=== PATIENT | male | born 1975 | race African-American/Black ===

== ENCOUNTER 2021-04-26 18:15 | Emergency (ER) | payer SELFPAY ==
--- NOTE | 2021-04-26 19:12 | ER ---
Nurse's Notes [facility] Name: Dawit Calderón Age: 45 yrs Sex: Male : 1975 Arrival Date: 04/26/2021 Time: 18:33 Bed Waiting Private MD: Diagnosis: ED Course: 04/26 18:33 Patient arrived in ED. ds1 18:58 not in ED when called to triage. ll1 Administered Medications: No medications were administered Outcome: 19:12 Patient left the ED. ll1 Signatures: Leila Young ds1 Eriberto Herndon, RN RN ll1
== END 2021-04-26 19:12 | disposition left against medical advice (07) ==
LOC: EDSEX 18:15 → ER 18:15
DX: Z02.9 Encounter for administrative examinations, unspecified (principal)

== ENCOUNTER → 2021-09-11 | Emergency (ER) | payer OTHER, SELFPAY ==
[~2021-09-11] MED LIST: ASPIRIN 81 MG CHEWABLE TABLET ONE
--- OUTSIDE RECORDS SUMMARY | 2021-09-11 16:35 | XMS REPORT | Continuity of Care Document ---
:1975 Author Organization [facility] t Address [address] [place] [address] [place] [id number] Care Team Providers Name Role Phone Unavailable Unavailable Unavailable Problems This patient has no known problems. Allergies, Adverse Reactions, Alerts This patient has no known allergies or adverse reactions. Medications This patient has no known medications. Procedures This patient has no known procedures. Results This patient has no known results.
[2021-09-11 17:16] LABS: Absolute Lymphocytes (CBC) 2.2 K/uL (0.7-4.9); Hematocrit 46.8 % (39.6-49.0); Lymphocytes % 32.7 % (15.3-44.8); RBC Red Blood Cell Count 5.44 M/uL (4.33-5.43)
--- NOTE | 2021-09-11 17:20 | RAD REPORT ---
EXAM DESCRIPTION: Corie Single View09/11/2021 5:12 pm CLINICAL HISTORY: Chest pain COMPARISON: none FINDINGS: The lungs appear clear of acute infiltrate. The heart is normal size IMPRESSION: No acute abnormalities displayed
[2021-09-11 17:30] LABS: Protime INR 1.09
[2021-09-11 17:33] LABS: Magnesium 2.1 mg/dL (1.8-2.4); Potassium 3.5 mmol/L (3.5-5.1); Troponin High Sensitivity 22.1 pg/mL (<58.9)
--- NOTE | 2021-09-11 18:54 | EDPHYS ---
Physician Documentation [facility] Name: Dawit Calderón Age: 46 yrs Sex: Male : 1975 Arrival Date: 09/11/2021 Time: 16:33 Bed 15 Private MD: ED Physician Ilya Alejo HPI: 09/11 16:55 This 46 yrs old Black Male presents to ER via Ambulatory with complaints of Chest Pain cp - no hx. Historical: - Allergies: 16:47 No Known Allergies; ld1 - Home Meds: 16:47 None [Active]; ld1 - PMHx: 16:47 None; ld1 - PSHx: 16:47 None; ld1 - Immunization history:: Adult Immunizations up to date, Client reports having NOT received the Covid vaccine. - Social history:: Smoking status: Patient denies any tobacco usage or history of. Patient/guardian denies using alcohol. ROS: 17:00 Constitutional: Negative for body aches, chills, fever, poor PO intake. cp 17:00 Eyes: Negative for injury, pain, redness, and discharge. cp 17:00 ENT: Negative for drainage from ear(s), ear pain, sore throat, difficulty swallowing, difficulty handling secretions. 17:00 Cardiovascular: Positive for chest pain, Negative for edema, palpitations. 17:00 Respiratory: Negative for cough, shortness of breath, wheezing. 17:00 Abdomen/GI: Negative for abdominal pain, nausea, vomiting, and diarrhea, constipation. 17:00 Back: Negative for pain at rest, pain with movement. 17:00 Neuro: Positive for near syncope, Negative for altered mental status, headache, loss of consciousness, syncope, weakness. 17:00 All other systems are negative. Exam: 16:51 ECG was reviewed by the Attending Physician. cp 17:05 Constitutional: The patient appears in no acute distress, alert, awake, cp non-diaphoretic, non-toxic, well developed, well nourished, overweight 17:05 Head/Face: Normocephalic, atraumatic. cp 17:05 Eyes: Periorbital structures: appear normal, Conjunctiva: normal, no exudate, no injection, Sclera: no appreciated abnormality, Lids and lashes: appear normal, bilaterally. 17:05 ENT: External ear(s): are unremarkable, Nose: is normal, Mouth: Lips: moist, Oral mucosa: moist, Posterior pharynx: Airway: no evidence of obstruction, patent. 17:05 Neck: ROM/movement: is normal, is supple, without pain, no range of motions limitations, no nuchal rigidity. 17:05 Chest/axilla: Inspection: normal, Palpation: is normal, no crepitus, no tenderness. 17:05 Cardiovascular: Rate: normal, Rhythm: regular, Heart sounds: murmur, not appreciated, Edema: is not appreciated, JVD: is not appreciated. 17:05 Respiratory: the patient does not display signs of respiratory distress, Respirations: normal, no use of accessory muscles, no retractions, labored breathing, is not present, Breath sounds: are clear throughout, no decreased breath sounds. 17:05 Abdomen/GI: Inspection: abdomen appears normal, Palpation: abdomen is soft and non-tender, in all quadrants. 17:05 Back: pain, is absent, ROM is normal. 17:05 Neuro: Orientation: to person, place \\T\\ time. Mentation: is normal, Motor: moves all fours, strength is normal, Sensation: is normal. Vital Signs: 16:46 BP 142 / 116; Pulse 92; Resp 18; Temp 98.1(TE); Pulse Ox 99% on R/A; Weight 117.93 kg; ld1 Height 6 ft. 1 in. (185.42 cm); Pain 6/10; 17:00 BP 138 / 92; ld1 16:46 Body Mass Index 34.30 (117.93 kg, 185.42 cm) ld1 MDM: 18:46 Patient medically screened. 18:55 Physician consultation: Андрей Franco was contacted at 18:55, regarding admission, to the telemetry unit. and will see patient in ED. 19:10 The patient was given aspirin in the Emergency Department. 19:10 Data reviewed: vital signs, nurses notes, lab test result(s), EKG, radiologic studies, cp plain films, and as a result, I will admit patient. Test interpretation: by ED physician or midlevel provider: ECG, plain radiologic studies. 19:10 Response to treatment: the patient's symptoms have resolved after treatment, chest pain cp resolved while in ED, and as a result, I will admit patient. 09/11 16:49 Order name: Basic Metabolic Panel; Complete Time: 18:17 [facility] 09/11 18:17 Interpretation: Normal except: CL 111; GLUC 197; CRE 1.46; GFR 59. 09/11 16:49 Order name: CBC with Diff; Complete Time: 18:17 [facility] 09/11 18:17 Interpretation: Normal except: RBC 5.44. 09/11 16:49 Order name: Troponin HS; Complete Time: 18:17 [facility] 09/11 19:08 Interpretation: Troponin HS 22.1; Reviewed. 09/11 16:51 Order name: COVID-19 SARS RT PCR (Document "Date of Onset" if Symptomatic); Complete cp Time: 19:08 09/11 19:08 Interpretation: Reviewed. 09/11 16:51 Order name: Magnesium; Complete Time: 18:17 cp 09/11 19:09 Interpretation: Reviewed. 09/11 16:51 Order name: PT-INR; Complete Time: 18:17 cp 09/11 19:09 Interpretation: Reviewed. 09/11 16:49 Order name: XRAY Chest (1 view); Complete Time: 18:17 [facility] 09/11 19:09 Interpretation: Report review. 09/11 16:49 Order name: EKG; Complete Time: 16:49 09/11 16:49 Order name: EKG - Nurse/Tech; Complete Time: 16:49 09/11 16:49 Order name: IV Saline Lock; Complete Time: 16:56 [facility] 09/11 16:51 Order name: Ptt, Activated; Complete Time: 18:17 09/11 16:51 Order name: BNP; Complete Time: 18:17 09/11 16:49 Order name: Labs collected and sent; Complete Time: 16:55 [facility] 09/11 16:49 Order name: O2 Per Protocol; Complete Time: 16:49 [facility] 09/11 16:49 Order name: O2 Sat Monitoring; Complete Time: 16:49 [facility] 09/11 16:51 Order name: Blood Pressure Recheck: bilateral upper extremity; Complete Time: 17:00 EC:51 Rate is 87 beats/min. Rhythm is regular. [place] interval is normal. QRS interval is normal. cp QT interval is normal. T waves are Inverted in leads III, aVF, aVR, V3, V4, V5, V6. Administered Medications: 16:57 Drug: Aspirin Chewable Tablet 324 mg Route: PO; ld1 17:00 Follow up: Response: No adverse reaction ld1 Disposition: 09/12 07:43 Co-signature as Attending Physician, Ilya Alejo MD I agree with the assessment and kdr plan of care. Disposition Summary: 09/11/21 18:53 Hospitalization Ordered Hospitalization Status: Observation cp Location: Telemetry/MedSurg (observation) cp Condition: Stable cp Problem: new cp Symptoms: have improved cp Bed/Room Type: Standard cp Room Assignment: cp Provider: Nnamdi Cifuentes(09/11/21 18:54) la1 Diagnosis - Angina pectoris, unspecified cp Forms: - Medication Reconciliation Form cp - SBAR form cp Signatures: Dispatcher [employer] EDMS Ilya Alejo MD MD [facility] Андрей Franco, HOSPITAL PLAN ADMINISTRATOR-C HOSPITAL PLAN ADMINISTRATOR-Cla1 Ben Ramos PA PA cp Fifi Palacio RN RN ld1 Corrections: (The following items were deleted from the chart) 09/11 18:54 18:53 Андрей Franco cp la1
--- NOTE | 2021-09-11 18:54 | ER ---
Nurse's Notes [facility] Name: Dawit Calderón Age: 46 yrs Sex: Male : 1975 Arrival Date: 09/11/2021 Time: 16:33 Bed 15 Private MD: Diagnosis: Angina pectoris, unspecified Presentation: 09/11 16:46 Chief complaint: Patient states: Chest pain on and off for the past week. Today it got ld1 bad while I was mowing, I had to stop because it was tight. Coronavirus screen: At this time, the client does not indicate any symptoms associated with coronavirus-19. Ebola Screen: No symptoms or risks identified at this time. Initial Sepsis Screen: Does the patient meet any 2 criteria? No. Patient's initial sepsis screen is negative. Does the patient have a suspected source of infection? No. Patient's initial sepsis screen is negative. Risk Assessment: Do you want to hurt yourself or someone else? Patient reports no desire to harm self or others. Onset of symptoms was September 11, 2021. 16:46 Method Of Arrival: Ambulatory ld1 16:46 Acuity: HIRAM 3 ld1 Triage Assessment: 16:47 General: Appears in no apparent distress. comfortable, Behavior is calm, cooperative, ld1 appropriate for age. Pain: Complains of pain in chest Pain does not radiate. Pain currently is 5 out of 10 on a pain scale. at worst was 9 out of 10 on a pain scale. Quality of pain is described as throbbing. Pain: Quality of pain is described as tight. EENT: No signs and/or symptoms were reported regarding the EENT system. Neuro: Level of Consciousness is awake, alert, obeys commands, Oriented to person, place, time, situation. Cardiovascular: Capillary refill < 3 seconds Patient's skin is warm and dry. Rhythm is sinus rhythm. Respiratory: Airway is patent Respiratory effort is even, unlabored, Respiratory pattern is regular, symmetrical. GI: Abdomen is round non-distended. : No signs and/or symptoms were reported regarding the genitourinary system. Derm: No signs and/or symptoms reported regarding the dermatologic system. Musculoskeletal: Reports pain in chest. Historical: - Allergies: 16:47 No Known Allergies; ld1 - Home Meds: 16:47 None [Active]; ld1 - PMHx: 16:47 None; ld1 - PSHx: 16:47 None; ld1 - Immunization history:: Adult Immunizations up to date, Client reports having NOT received the Covid vaccine. - Social history:: Smoking status: Patient denies any tobacco usage or history of. Patient/guardian denies using alcohol. Screenin:00 Abuse screen: Denies threats or abuse. Nutritional screening: No deficits noted. ld1 Tuberculosis screening: No symptoms or risk factors identified. Fall Risk None identified. 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 19:18 Reassessment: Informed pt of potential risks of leaving AMA, "You have to take care of ld1 yourself too", stated that pt can always come back, asked to come back after he gets his animals taken care of. Vital Signs: 16:46 BP 142 / 116; Pulse 92; Resp 18; Temp 98.1(TE); Pulse Ox 99% on R/A; Weight 117.93 kg; ld1 Height 6 ft. 1 in. (185.42 cm); Pain 6/10; 17:00 BP 138 / 92; ld1 16:46 Body Mass Index 34.30 (117.93 kg, 185.42 cm) ld1 ED Course: 16:33 Patient arrived in ED. am2 16:36 [facility] cp 16:36 Ilya Alejo MD is Attending Physician. cp 16:47 Triage completed. ld1 16:47 Arm band placed on right wrist. ld1 16:54 Inserted saline lock: 20 gauge in right antecubital area, using aseptic technique. ld1 Blood collected. 16:54 EKG done, by ED staff, reviewed by Ben BRANCH. ld1 16:54 BNP Sent. ld1 16:55 Ptt, Activated Sent. ld1 16:55 PT-INR Sent. ld1 16:55 Magnesium Sent. ld1 16:55 Troponin HS Sent. ld1 16:55 CBC with Diff Sent. ld1 16:55 Basic Metabolic Panel Sent. ld1 16:56 COVID-19 SARS RT PCR (Document "Date of Onset" if Symptomatic) Sent. ld1 17:14 XRAY Chest (1 view) In Process Unspecified. EDMS 18:52 Андрей Franco is Hospitalizing Provider. cp 18:54 Nnamdi Cifuentes MD is Hospitalizing Provider. la1 19:00 Patient has correct armband on for positive identification. Placed in gown. Bed in low ld1 position. Call light in reach. Side rails up X 1. 19:00 Client placed on continuous cardiac and pulse oximetry monitoring. NIBP monitoring ld1 applied. 19:17 No provider procedures requiring assistance completed. IV discontinued, intact, ld1 bleeding controlled, No redness/swelling at site. Pressure dressing applied. 19:17 Patient maintains SpO2 saturation greater than 95% on room air. ld1 Administered Medications: 16:57 Drug: Aspirin Chewable Tablet 324 mg Route: PO; ld1 17:00 Follow up: Response: No adverse reaction ld1 Outcome: 18:53 Decision to Hospitalize by Provider. cp 19:17 AMA AMA form signed ld1 19:17 Condition: stable 19:17 Discharge instructions given to patient, Instructed on Leaving AMA Demonstrated understanding of instructions. 19:52 Patient left the ED. ld1 Signatures: Dispatcher [employer] EDMS Андрей Franco, GOVERNMENT RELATIONS DIRECTOR-C GOVERNMENT RELATIONS DIRECTOR-Cla1 Ben Ramos PA PA cp Moreno, Amanda am2 Fifi Palacio RN RN ld1 Corrections: (The following items were deleted from the chart) 19:51 19:49 Abuse screen: Denies threats or abuse. ld1 ld1 19:51 19:49 Nutritional screening: No deficits noted. ld1 ld1 19:51 19:49 Tuberculosis screening: No symptoms or risk factors identified. ld1 ld1 19:51 19:49 Fall Risk None identified. ld1 ld1
[2021-09-11 19:57] VITALS: TEMP 98.1; O2SAT 99
[2021-09-11 19:58] VITALS: BP 138/92
--- NOTE | 2021-09-14 12:24 | EKG ---
Test Date: 2021-09-11 Test Time: 16:45:03 Lease Administrator: MB MEASUREMENT RESULTS: Intervals: Rate: 87 VT: 146 QRSD: 90 QT: 390 QTc: 469 [place]: P: 67 VT: 146 QRS: 27 T: -35 INTERPRETIVE STATEMENTS: Sinus rhythm with occasional premature ventricular complexes T wave abnormality, consider inferior ischemia T wave abnormality, consider anterolateral ischemia Prolonged QT Abnormal ECG No previous ECG available for comparison Electronically Signed On 09-14-21 12:17:19 CDT by Dre Long
== END ==
LOC: ER 16:32
DX: I20.9 Angina pectoris, unspecified (principal); Z20.822 Contact with and (suspected) exposure to COVID-19
CPT/HCPCS: 93005; 85025; 80048; 36415; 83735; 85610; 85730; 84484; 83880; 71045; 99285; U0003

== ENCOUNTER 2024-05-23 06:59 | Inpatient (IN) | payer BC, OTHER ==
--- OUTSIDE RECORDS SUMMARY | 2024-05-23 07:03 | XMS REPORT | Continuity of Care Document ---
Author Name Unknown Address [address] [facility] [address] [place] [address] [facility] thconnect Address [address] [facility] [address] [place] [address] Care Team Providers Care Identification Clerk Name Role Phone Manuel GEORGE, Maximilian Chris Primary Care Physician Sherrie Sparrow LVN Attending Clinician [phone] AVERY AGUILAR Attending Clinician Bishop Norton Attending Clinician [phone] Kiki Cat NP Attending Clinician [phone] Avery Aguilar MD Attending Clinician [phone] AVERY AGUILAR Admitting Clinician Avery Tyler MD Admitting Clinician [phone] Payers Payer Name Policy Type Policy Number Effective Date Expirati on Date Source Problems Condition Name Condition Details Condition Category Status Onset Date Resolution Date Last Treatment Date Treating Clinician Comments Source Vitamin D deficiency Vitamin D Deficiency Problem Active 1- 00:00: 00 [facility] Fatigue Fatigue Problem Active 2023-04 0- 00:[facility] Type 2 diabetes mellitus Type 2 Diabetes Mellitus Problem Active 12-18 00:00: 00 [facility] Hyperchole sterolemia Hyperchole sterolemia Problem Active 12-18 00:00: 00 [facility] Essential hypertensi on Essential Hypertensi on Problem Active 12-18 00:00: 00 [facility] Obesity (BMI 30-39.9) Obesity (BMI 30-39.9) Disease Active 12-17 00:00: 00 [facility] NSVT (nonsustai edin ventricula r tachycardi a) NSVT (nonsustai edin ventricula r tachycardi a) Disease Active 12-17 00:00: 00 [facility] COVID-19 virus infection COVID-19 virus infection Disease Active 12-17 00:00: 00 [facility] DKA, type 1, not at goal DKA, type 1, not at goal Disease Active 12-16 00:00: 00 [facility] Allergies, Adverse Reactions, Alerts Allergy Name Allergy Type Status Severity Reaction(s) Onset Date Inactive Date Treating Clinician Comments Source NO KNOWN ALLERGIE S Drug Class Active [facility] Social History Social Habit Start Date Stop Date Quantity Comments Source Sexual orientation U [facility] Sex assigned at 1975 00:00:00 1975 00:00:00 [facility] Smoking Status Start Date Stop Date Source Tobacco smoking consumption unknown [facility] Never Smoker [facility] Medications Ordered Medication Name Filled Medication Name Start Date Stop Date Current Medication? Ordering Clinician Indication Dosage Frequency Signature (SIG) Comments Components Source losartan 50 mg tablet 12-18 00:00: 00 01-18 04:59 :00 No [id number] 50mg Take 1 tablet by mouth in the morning for 30 days. [facility] metoprolol succinate XL 25 mg 24 hr tablet 12-18 00:00: 00 01-18 04:59 :00 No [id number] 12.5mg Take 0.5 tablets by mouth in the morning for 30 days. [facility] insulin lispro (human) (HumaLOG U-100) injection 5 Units 12-17 17:30: 00 12-17 17:30 :00 No 5U 5 Units, Subcutaneo us, ONCE, 1 dose, On Mon12/18/23 at 1230, [facility] ([facility] (HumaLOG U-100) injection 6 Units 12-17 17:00: 00 Yes 6U 6 Units, Subcutaneo us, TID MEALS, First dose on Mon12/18/23 at 1200, Until Discontinu ed, Routine [facility] metoprolol succinate XL (TOPROL XL) tablet 12.5 mg 12-17 15:15: 00 Yes 12.5mg 12.5 mg, Oral, DAILY, First dose on Mon12/18/23 at 1015, Until Discontinu ed, Routine [facility] losartan (COZAAR) tablet 50 mg 12-17 14:15: 00 Yes 50mg 50 mg, Oral, DAILY, First dose on Mon12/18/23 at 0915, Until Discontinu ed, Routine Univers [facility] dextrose 50 % in water (D50W) injection 25 mL 12-17 14:02: 04 Yes 25mL 25 mL, Slow IV Push, PRN, Starting on Mon12/18/23 at 0902, Until Discontinu ed, AMNA, Blood Glucose < or = 70 mg/dL and patient is NPO, unable to swallow or has mental status changes. [facility] insulin glargine (LANTUS U-100) injection 30 Units 12-17 14:00: 00 Yes 30U 30 Units, Subcutaneo us, DAILY, First dose on Mon12/18/23 at 0900, Until Discontinu ed, [facility] docusate (COLACE) capsule 100 mg 12-17 14:00: 00 Yes 100mg 100 mg, Oral, DAILY, First dose on Mon12/18/23 at 0900, Until Discontinu ed, Routine [facility] enoxaparin (LOVENOX) injection 40 mg 12-17 14:00: 00 Yes 40mg 40 mg, Subcutaneo us, DAILY, First dose on Mon12/18/23 at 0900, Until Discontinu ed, Routine [facility] NaCl 0.9% (NS) IV infusion 1,000 mL 12-17 04:00: 00 12-17 13:59 :56 No 1000mL at 150 mL/hr, IV Infusion, CONTINUOUS , Starting on Mon12/17/23 at 2300, Until 12/18/23 at 0859, Routine Univers [facility] NaCl 0.9% (NS) 1000 mL + KCL 20 mEq 12-17 03:00: 00 12-17 13:59 :56 No 1000mL IV Infusion, at 150 mL/hr, CONTINUOUS , Starting on Mon12/17/23 at 2200, Until 12/18/23 at 0859, Routine [facility] ondansetron (ZOFRAN (PF)) injection 4 mg 12-17 02:54: 08 Yes 4mg 4 mg, Slow IV Push, Q6HPRN, Starting on Mon12/17/23 at 2154, Until Discontinu ed, Routine, Nausea and Vomiting (N/V) [facility] morphine (2 mg/mL) injection 2 mg 12-17 02:53: 57 12-18 02:52 :57 No 2mg 2 mg, Slow IV Push, Q4HPRN, Starting on Mon12/17/23 at 2153, Until Mon12/18/23 at 2152, Routine, Pain (scale 7-10) [facility] HYDROcodone -acetaminop hen (NORCO 5) tablet 1 tablet 12-17 02:53: 54 12-19 02:52 :54 No 1{tbl} 1 tablet, Oral, Q6HPRN, Starting on Mon12/17/23 at 2153, Until Tu12/19/23 at 2152, Routine, Pain (scale 4-6) [facility] acetaminoph en (TYLENOL) tablet 650 mg 12-17 02:53: 30 Yes 650mg 650 mg, Oral, Q6HPRN, Starting on Mon12/17/23 at 2153, Until Discontinu ed, Routine, Pain (scale 1-3) [facility] insulin regular human (HUMULIN R) 100 Units in NaCl 0.9% (NS) 100 mL infusion 12-17 02:51: 32 12-17 13:59 :56 No 0U/kg/h 0-0.3 Units/kg/h r ?113.9 kg (0-34.17 mL/hr), IV Infusion, TITRATE, Parameters in Admin. Instr., Follow DKA Insulin Rate Adjustment Protocol, Starting on 12/17/23 at 2151, IMPORTAN T: IF YOU ARE THE NURSE INITIATING THE INSULIN DRIP, in order to be able to adjust rate, change the dose from the MAR from the drop-down menu from units/kg/h r to units/hr. This will send the dosage to the IV pump in units/hr, which aligns with the insulin calculator and nursing practice.* * - Follow 'DKA Insulin Rate Adjustment Protocol' - Start insulin infusion at 0.1 units/kg /hr. When adjusting rate, do not increase rate above 0.3 units/kg/h our. If rate has been at 0.3 units/kg/h r for the past two hours AND blood glucose remains above 200 mg/dL in DKA and above 300 mg/dL in HHS without a drop of at least 10% in glucose levels, NHO for considerat ion of endocrinol ogy consult - Hold insulin and NHO STAT if potassium is less than 3.3 mEq/L. - NHO STAT if blood glucose less than 100 mg/dL or greater than 600 mg/dL or if blood glucose not decreased by 50 mg/dL in the first hour of insulin infusion. - Once blood glucose is less than or equal to 200 mg/dL in patient with DKA or blood glucose is less than or equal to 300 mg/dL in patient with HHS, change to fluids with dextrose. - If during insulin infusion and on dextrose fluids blood glucose is less than 150 mg/dL in DKA or less than 200 mg/dL in HHS, NHO for increase in dextrose provided in continuous fluids. - Once AGAP less than 12, blood glucose less than 200 mg/dL, TCO2 greater than 15 x 2 and patient ready to eat, NHO for SubQ glargine order two hours before stopping insulin infusion. [facility] D5W 0.9% NaCl (NS) 1 L + KCL 20 mEq 12-17 02:51: 00 12-17 13:59 :56 No IV Infusion, at 200 mL/hr, PRN - SEE INSTRUCTIO NS, Starting on Mon12/17/23 at 2151, Until Mon12/18/23 at 0859, AMNA, Blood glucose control [facility] insulin regular human (HUMULIN R) injection 10 Units 12-17 00:30: 00 12-17 00:37 :00 No 10U 10 Units, Slow IV Push, ONCE, 1 dose, On Mon12/17/23 at 1930, STAT, Indication for insulin: Hyperglyce boogie [facility] NaCl 0.9% (NS) bolus infusion 2,000 mL 12-17 00:30: 00 12-17 00:37 :00 No 2000mL at 999 mL/hr, 2,000 mL, IV Infusion, ONCE, 1 dose, On Mon12/17/23 at 1930, STAT [facility] aspirin chewable tablet 324 mg 12-17 00:15: 00 12-16 23:16 :00 No 324mg 324 mg, Oral, ONCE, 1 dose, On Mon12/17/23 at 1915, Routine [facility] Blood-Gluco se Meter (ACCU-CHEK GUIDE GLUCOSE [facility]) [facility] 00:[facility]: 00 Yes [id number] Use as directed [facility] lancets 33 gauge Misc 12-17 00:00: 00 Yes [id number] Use as directed [facility] blood sugar diagnostic (ACCU-CHEK GUIDE TEST STRIPS) strip 12-17 00:00: 00 Yes [id number] Use as directed [facility] Insulin Syringe-Nee dle U-100 0.5 mL 31 gauge x 5/16" Syrg 12-17 00:00: 00 Yes [id number] Use as directed [facility] insulin glargine 100 unit/mL injection 12-17 00:00: 00 Yes [id number] 35U inject 35 Units under the skin in the morning. [facility] insulin lispro, human, (HUMALOG U-100 INSULIN) 100 unit/mL injection 12-17 00:00: 00 Yes [id number] 10U inject 10 Units under the skin in the morning and 10 Units at noon and 10 Units in the evening. inject with meals. [facility] atorvastati n 20 mg tablet 12-17 00:00: 00 01-17 04:59 :00 No [id number] 20mg Take 1 tablet by mouth at bedtime for 30 days. [facility] metoprolol succinate ER 25 mg tablet,exte nded release 24 hr Take 1 tablet every day by oral route. metoprolol succinate ER 25 mg tablet,exte nded release 24 hr Take 1 tablet every day by oral route. No 1 Q1D metoprolol succinate ER 25 mg tablet,ext ended release 24 hr Take 1 tablet every day by oral route. [facility] Accu-Chek Softclix Lancets Accu-Chek Softclix Lancets No Accu-Chek Softclix Lancets [facility] atorvastati n 20 mg tablet TAKE 1 TABLET BY MOUTH EVERY DAY atorvastati n 20 mg tablet TAKE 1 TABLET BY MOUTH EVERY DAY No 1 Q1D atorvastat in 20 mg tablet TAKE 1 TABLET BY MOUTH EVERY DAY [facility] glipizide ER 5 mg tablet, extended release 24 hr TAKE 1 TABLET BY MOUTH TWICE DAILY glipizide ER 5 mg tablet, extended release 24 hr TAKE 1 TABLET BY MOUTH TWICE DAILY No 1 BID glipizide ER 5 mg tablet, extended release 24 hr TAKE 1 TABLET BY MOUTH TWICE DAILY [facility] losartan 50 mg tablet TAKE 1 TABLET BY MOUTH EVERY DAY losartan 50 mg tablet TAKE 1 TABLET BY MOUTH EVERY DAY No 1 Q1D losartan 50 mg tablet TAKE 1 TABLET BY MOUTH EVERY DAY [facility] metformin ER 500 mg tablet,exte nded release 24 hr TAKE 2 TABLETS BY MOUTH TWICE DAILY metformin ER 500 mg tablet,exte nded release 24 hr TAKE 2 TABLETS BY MOUTH TWICE DAILY No metformin ER 500 mg tablet,ext ended release 24 hr TAKE 2 TABLETS BY MOUTH TWICE DAILY [facility] Vital Signs Vital Name Observation Time Observation Value Comments Mahesh bettencourt Body Weight 2024-04-19 00:00:00 3576 [oz_av] [facility] Height 2024-04-19 00:00:00 73 [in_i] [facility] BP Systolic 2024-04-19 00:00:00 131 mm[Hg] [facility] BP Diastolic 2024-04-19 00:00:00 77 mm[Hg] [facility] BMI (Body Mass Index) 2024-04-19 00:00:00 29.5 kg/m2 [facility] Body Weight 2024-02-23 00:00:00 3776 [oz_av] [facility] Height 2024-02-23 00:00:00 73 [in_i] [facility] BP Systolic 2024-02-23 00:00:00 139 mm[Hg] [facility] BP Diastolic 2024-02-23 00:00:00 91 mm[Hg] [facility] BMI (Body Mass Index) 2024-02-23 00:00:00 31.1 kg/m2 [facility] BP Systolic 2024-01-19 00:00:00 150 mm[Hg] [facility] BP Diastolic 2024-01-19 00:00:00 81 mm[Hg] [facility] BMI (Body Mass Index) 2024-01-19 00:00:00 32.5 kg/m2 [facility] Body Weight 2024-01-19 00:00:00 3936 [oz_av] [facility] Height 2024-01-19 00:00:00 73 [in_i] [facility] BP Diastolic 2023-12-19 00:00:00 85 mm[Hg] [facility] BMI (Body Mass Index) 2023-12-19 00:00:00 34.6 kg/m2 [facility] BP Systolic 2023-12-19 00:00:00 139 mm[Hg] [facility] Body Weight 2023-12-19 00:00:00 4192 [oz_av] Zoe martínez [facility] Height 2023-12-19 00:00:00 73 [in_i] Chris carney [facility] Systolic blood pressure 2023-12-18 21:30:00 124 mm[Hg] [facility] Diastolic blood pressure 2023-12-18 21:30:00 88 mm[Hg] [facility] Heart rate 2023-12-18 21:30:00 83 /min [facility] Respiratory rate 2023-12-18 21:30:00 12 /min [facility] Oxygen saturation in Arterial blood by Pulse oximetry 2023-12-18 21:30:00 97 /min [facility] Body temperature 2023-12-18 20:00:00 36.89 Iesha [facility] Body weight 2023-12-18 09:00:00 114.987 kg [facility] BMI 2023-12-18 09:00:00 33.45 kg/m2 [facility] Body height 2023-12-18 03:55:00 185.4 cm [facility] Procedures Procedure Date / Time Performed Performing Clinician Source POCT GLUCOSE (AUTOMATED) 2023-12-18 21:44:00 Avery Aguilar [facility] POCT GLUCOSE (AUTOMATED) 2023-12-18 19:34:00 Avery Aguilar [facility] POCT GLUCOSE (AUTOMATED) 2023-12-18 16:30:00 Avery Aguilar [facility] BASIC METABOLIC PANEL (NA, K, CL, CO2, GLUCOSE, BUN, CREATININE, CA) 2023-12-18 16:26:00 Avery Aguilar [facility] CBC WITHOUT DIFF 2023-12-18 16:26:00 [facility] 2023-12-18 13:16:00 Avery Aguilar [facility] POCT GLUCOSE (AUTOMATED) 2023-12-18 12:11:00 Avery Aguilar [facility] POCT GLUCOSE (AUTOMATED) 2023-12-18 11:07:00 Avery Aguilar [facility] POCT GLUCOSE (AUTOMATED) 2023-12-18 10:01:00 Avery Aguilar [facility] LIPASE 2023-12-18 09:04:00 Avery Aguilar [facility] MAGNESIUM 2023-12-18 09:04:00 Avery Aguilar [facility] BASIC METABOLIC PANEL (NA, K, CL, CO2, GLUCOSE, BUN, CREATININE, CA) 2023-12-18 09:04:00 Avery Aguilar [facility] LIPID PANEL (05133)(TOTAL CHOLESTEROL, TRIGLYCERIDES, HDL) 2023-12-18 09:04:00 Avery Aguilar [facility] POCT GLUCOSE (AUTOMATED) 2023-12-18 08:52:00 Avery Aguilar [facility] POCT GLUCOSE (AUTOMATED) 2023-12-18 07:39:00 Avery Aguilar [facility] POCT GLUCOSE (AUTOMATED) 2023-12-18 06:45:00 Avery Aguilar [facility] POCT GLUCOSE (AUTOMATED) 2023-12-18 05:55:00 Avery Aguilar [facility] POCT GLUCOSE (AUTOMATED) 2023-12-18 04:47:00 Avery Aguilar [facility] OSMOLALITY, SERUM OR PLASMA 2023-12-18 03:07:00 Avery Aguilar [facility] BETA HYDROXY-BUTYRATE 2023-12-18 03:07:00 Autumn Aguilar [facility] BASIC METABOLIC PANEL (NA, K, CL, CO2, GLUCOSE, BUN, CREATININE, CA) 2023-12-18 03:07:00 Avery Aguilar [facility] GLYCOSYLATED HEMOGLOBIN (A1C) 2023-12-18 03:07:00 Avery Aguilar [facility] URINALYSIS 2023-12-18 03:07:00 Avery Aguilar [facility] POCT GLUCOSE(AGE >30DAYS) 2023-12-18 03:07:00 Avery Aguilar [facility] POCT GLUCOSE (AUTOMATED) 2023-12-18 03:06:00 Avrey Aguilar [facility] POCT GLUCOSE (AUTOMATED) 2023-12-18 01:38:00 Kiki Cat [facility] URINALYSIS 2023-12-18 00:40:00 [facility] POCT GLUCOSE (AUTOMATED) 2023-12-18 00:36:00 Kiki Cat [facility] ACUTE CARE ARTERIAL BLOOD GAS 2023-12-18 00:28:00 Bishop Aguilera [facility] XR CHEST 1 VW 2023-12-17 23:37:37 Bishop Aguilera [facility] D-DIMER 2023-12-17 23:31:00 [facility] POCT GLUCOSE(AGE >30DAYS) 2023-12-17 23:27:00 Bishop Aguilera [facility] POCT GLUCOSE (AUTOMATED) 2023-12-17 23:26:00 Bishop Aguilera [facility] MAGNESIUM 2023-12-17 23:15:00 Bishop Aguilera [facility] TROPONIN I 2023-12-17 23:15:00 Bishop [facility] COMP. METABOLIC PANEL (69226) 2023-12-17 23:15:00 Bishop Aguilera [facility] CBC WITH DIFF 2023-12-17 23:15:00 Bishop Aguilera [facility] INFLUENZA A/B RSV COVID NAAT 2023-12-17 23:15:00 Bishop Aguilera [facility] N-TERMINAL PRO-BNP 2023-12-17 23:15:00 Bishop Aguilera [facility] HB ECG ROUTINE & RHYTHM STRIP 2023-12-17 23:10:45 Bishop Aguilera [facility] Encounters Start Date/Time End Date/Time Encounter Type Admission Type Attending Clinicians Care Facility Care Department Encounter ID Source 2024-04-19 00:00:00 2024-04-19 00:00:00 ELISABETH NewOFFICE CLEANER-B C: [address] [place] [address] , Ph. [facility] [address] [facility] 2024-02-23 00:00:00 2024-02-23 00:00:00 ELISABETH NewOFFICE CLEANER-B C: [address] [place] [address] , Ph. [facility] [address] [facility] 2024-01-19 00:00:00 2024-01-19 00:00:00 Aneta Dunn APRN-OFFICE CLEANER-B C: [address] [place] [address] , Ph. [facility] [address] [facility] 2023-12-21 00:00:00 2023-12-22 14:57:59 Transition of Care Sherrie Sparrow Antoinette [address] [place] [address] [id number] [facility] 2023-12-19 00:00:00 2023-12-19 00:00:00 Aneta Dunn APRN-OFFICE CLEANER-B C: [address] [place] [address] , Ph. [facility] [address] [facility] 2023-12-17 18:07:00 2023-12-18 17:34:00 Inpatient X AGUILAR, AVERY [facility] MARIBEL [id number] [facility] 2023-12-17 18:07:00 2023-12-18 17:34:00 Hospital Encounter Bishop Aguilera, Avery Shaw [facility] [id number] [facility] Results Test Description Test Time Test Comments Results Result Co mments Source [facility][id number] 20:50:05* Test Item Value Reference Range Interpretation Comme nts BOH (test code = 7452596313) 5.1 mmol/L JM (test code = JM) Normal Ranges: ? ? Nonfasting ? Less than 0.1 mmol/L ? ? Overnight Fast ? ? ? Less than 0.4 mmol/L ? ? Fasting (1-2 weeks) ?6-8 mmol/L Test developed and characteristics determined by [facility] Laboratory Services. [facility]2023-12-18 19:35:10* Test Item Value Reference Range Interpretation Comme nts POCT GLU (test code = 1495241640) 344 mg/dL 70-110 H Lab Interpretation (test cod e = 89138-8) Abnormal [facility]2023-12-18 16:31:08* Test Item Value Reference Range Interpretation Comme nts POCT GLU (test code = 3349921735) 335 mg/dL 70-110 H Lab Interpretation (test cod e = 26341-1) Abnormal [facility] Center[facility]sm[facility] [id number] 15:59:56* Test Item Value Reference Range Interpretation Comme nts OSMOLALITY (test code = 2692-2) 325 278-305 HH Lab Interpretation (test cod e = 23015-8) Abnormal [facility] GLUCOSE (AUTOMATED)2023-12-18 13:17:06* Test Item Value Reference Range Interpretation Comme nts POCT GLU (test code = 8516624308) 193 mg/dL 70-110 H Lab Interpretation (test cod e = 42732-7) [facility] 12:12:07* Test Item Value Reference Range Interpretation Comme nts POCT GLU (test code = 6452423151) 172 mg/dL 70-110 H Lab Interpretation (test cod e = 28501-6) [facility]normal [facility]2023-12-18 11:13:38* Test Item Value Reference Range Interpretation Comme nts POCT GLU (test code = 5365702851) 147 mg/dL 70-110 H Lab Interpretation (test cod e = 06391-7) [facility]normal [facility]2023-12-18 10:11:39* Test Item Value Reference Range Interpretation Comme nts POCT GLU (test code = 8399522270) 217 mg/dL 70-110 H Lab Interpretation (test cod e = 50912-9) Abnormal [facility] GLUCOSE (AUTOMATED)2023-12-18 08:53:38* Test Item Value Reference Range Interpretation Comme nts POCT GLU (test code = 3049047402) 155 mg/dL 70-110 H Lab Interpretation (test cod e = 59276-8) Abnormal [facility] GLUCOSE (AUTOMATED)2023-12-18 07:48:10* Test Item Value Reference Range Interpretation Comme nts POCT GLU (test code = 3726133056) 249 mg/dL 70-110 H Lab Interpretation (test cod e = 64180-6) Abnormal [facility] GLUCOSE (AUTOMATED)2023-12-18 06:56:07* Test Item Value Reference Range Interpretation Comme nts POCT GLU (test code = 7583094491) 193 mg/dL 70-110 H Lab Interpretation (test cod e = 02778-7) Abnormal [facility] GLUCOSE (AUTOMATED)2023-12-18 06:02:06* Test Item Value Reference Range Interpretation Comme nts POCT GLU (test code = 8601597970) 221 mg/dL 70-110 H Lab Interpretation (test cod e = 75692-7) Abnormal [facility] GLUCOSE (AUTOMATED)2023-12-18 04:48:08* Test Item Value Reference Range Interpretation Comme nts POCT GLU (test code = 8283332616) 265 mg/dL 70-110 H Lab Interpretation (test cod e = 68632-0) [facility]normal [facility] (Na, K, Cl, CO2, Glucose, BUN, Creatinine, Ca)2023-12-18 04:24:44* Test Item Value Reference Range Interpretation Comme nts NA (test code = 2990974558) 134 mmol/L 135-145 L K (test code = 9493694810) 4.5 mmol/L 3.5-5.0 CL (test code = 5817889644) 100 mmol/L 98-108 CO2 TOTAL (test code = 7094894926) 15 mmol/L 23-31 L AGAP (test code = 5277266241) 19 2-16 H BUN (test code = 9764146462) 15 mg/dL 7-23 GLUCOSE (test code = 9103870149) 397 mg/dL 70-110 H CREATININE (test code = 2160-0) 1.10 mg/dL 0.60-1.25 CALCIUM (test code = 8967906486) 9.2 mg/dL 8.6-10.6 eGFR (test code = 81668-0) 81.8 mL/min/1.73m2 CKD-EPI eGFR (2020). Assuming creatinine has been stable day-to-day for at least three months, the eGFR indicates Category G2 (60 - 89 mL/min/1.73 m2) Lab Interpretation (test code = 40487-4) Abnormal [facility] (A1C)2023-12-18 04:24:34* Test Item Value Reference Range Interpretation Comme [facility] HGB A1C (test code = 4548-4) 12.0 % 4.0-5.7 H JM (test code = JM) Reference RangesNormal: <5.7%Prediabetes: 5.7 - 6.4%Diabetes: > 6.5% Lab Interpretation (test code = 63704-8) [facility]normal [facility] 1 [id number] 03:45:12Exam: Chest (1 View), 12/17/2023 6:30 PM. Ordering Physician: Bishop AGUILERA. History: Short of breath. Technique: One view of the chest. Comparison: None. Findings: Cardiac silhouette is normal. Thereis no pneumothorax. There is noconsolidation or pleural effusion. Pleural and diaphragmatic contours arenormal. Osseous structures show degenerative changes.[facility] GLUCOSE (AUTOMATED)2023-12-18 03:24:37* Test Item Value Reference Range Interpretation Comme nts POCT GLU (test code = 2262663275) 371 mg/dL 70-110 H Lab Interpretation (test cod e = 88680-8) Abnormal [facility] GLUCOSE(AGE >30DAYS)2023-12-18 03:07:00* Test Item Value Reference Range Interpretation Comme nts POCT Glu (age>30days) (test code = 3342) 371 mg/dL 70-110 A Lab Interpretation (test cod e = 10371-2) Abnormal [facility] GLUCOSE (AUTOMATED)2023-12-18 01:39:06* Test Item Value Reference Range Interpretation Comme nts POCT GLU (test code = 2955919541) 373 mg/dL 70-110 H Lab Interpretation (test cod e = 66522-0) Abnormal [facility] GLUCOSE (AUTOMATED)2023-12-18 00:37:36* Test Item Value Reference Range Interpretation Comme nts POCT GLU (test code = 9813341241) 590 mg/dL 70-110 HH Lab Interpretation (test cod e = 60450-3) [id number] Test Item Value Reference Range Interpretation Comments D-DIMER (test code = 2233717280) 0.22 See_Comment [Automated message] The system which generated this result transmitted reference range: <0.50 ?g/mL (FEU). The reference range was not used to interpret this result as normal/abnormal. JM (test code = JM) This test may be used in conjunction with a clinical pretest probability (PTP) assessment model to exclude venous thromboembolism (VTE) in patients suspected of deep venous thrombosis (DVT) and pulmonary embolism (PE) A D-Dimer value less than 0.50 ?g/ml (FEU) has a negative predicative value of 96 to 100% (95% CI)and 97 to 100% (95% CI) as an aid in the diagnosis of deep vein thrombosis (DVT) and pulmonary embolism when there is low or moderate pretest probability of PE or DVT. D-Dimer values are expressed in initial fibrinogen equivalent units (FEU)" The assay results should be used with other information, including the clinical context, in forming a diagnosis. Lab Interpretation (test code = 90985-9) Normal [facility] GLUCOSE (AUTOMATED)2023-12-17 23:28:09* Test Item Value Reference Range Interpretation Comme nts POCT GLU (test code = [id number]) 575 mg/dL 70-110 HH Lab Interpretation (test cod e = 81943-0) Abnormal [facility] Glucose(Age >30days)2023-12-17 23:27:00* Test Item Value Reference Range Interpretation Comme nts POCT Glu (age>30days) (test code = 3342) 575 mg/dL 70-110 A Lab Interpretation (test cod e = 29086-9) Abnormal [facility] Consult Notes Date/Time Note Provider Source 2023-12-18 10:05:21 Associated Order(s): CONSULT CARDIOLOGY [facility] Cardiology Consult PCP: Maximilian Jackson Date of Service: 12/18/2023 CHIEF COMPLAINT/reason for consult: NSVT HISTORY OF PRESENT ILLNESS This is a 56 years old male past medical history of diabetes and obesity. He came to [facility] due to blurry vision and polyuria. He was found to have diabetic ketoacidosis. COVID-19 testing was positive. She was found to have 8 seconds non-sustained V. tach. No symptoms during V. tach. PAST MEDICAL HISTORY History reviewed. No pertinent past medical history. History reviewed. No pertinent surgical history. No family history on file. ALLERGIES No Known Allergies MEDICATIONS No current facility-administered medications on file prior to encounter. No current outpatient medications on file prior to encounter. SOCIAL HISTORY Social History Socioeconomic History Marital status: REVIEW OF SYSTEMS At least 10 systems reviewed, negative except as mentioned in HPI PHYSICAL EXAMINATION Vitals: 12/18/23 0500 12/18/23 0600 12/18/23 0607 12/18/23 0700 BP: 129/86 (!) 146/97 (!) 142/82 Pulse: 78 75 73 75 Resp: 21 14 15 22 Temp: 36.7 ?C (98.1 ?F) TempSrc: Temporal Artery SpO2: 98% 99% 97% 97% Weight: Height: Exam is limited due to COVID Constitutional: no apparent distress ENT: normocephalic atraumatic GI: non-distended : not examined LABS - reviewed pertinent labs as below: CBC BMP PT/INR WBC (10*3/?L) Date Value 12/17/2023 8.10 NA (mmol/L) Date Value 12/18/2023 136 No results found for: "PT" PLT (10*3/?L) Date Value 12/17/2023 221 K (mmol/L) Date Value 12/18/2023 3.7 No results found for: "PTINR" HGB (g/dL) Date Value 12/17/2023 17.0 (H) BUN (mg/dL) Date Value 12/18/2023 12 HCT (%) Date Value 12/17/2023 50.5 (H) CREATININE (mg/dL) Date Value 12/18/2023 0.75 LIPID PROFILE GLUCOSE (mg/dL) Date Value 12/18/2023 161 (H) CHOL (mg/dL) Date Value 12/18/2023 143 TSH LDL CHOL (mg/dL) Date Value 12/18/2023 82 No results found for: "TSH" CARDIAC ENZYMES HDL (mg/dL) Date Value 12/18/2023 37 (L) No results found for: "CK" TRIG (mg/dL) Date Value 12/18/2023 121 LFTs No results found for: "CKMB" AST(SGOT) (U/L) Date Value 12/17/2023 35 TROPONIN I (ng/mL) Date Value 12/17/2023 0.018 ALTv (U/L) Date Value 12/17/2023 40 No results found for: "BNP" IMAGING - reviewed, pertinent results as below: Chest [id number] ASSESSMENT/PLAN Principal Problem: DKA, type 1, not at goal Active Problems: Obesity (BMI 30-39.9) NSVT (nonsustained ventricular tachycardia) COVID-19 virus infection Diabetic ketoacidosis-insulin therapy per primary team. COVID-19 infection-supportive care. Nonsustained ventricular tachycardia-echocardiogram to rule out structural heart disease. Potassium and magnesium levels are good. Due to high blood pressure, we will start Toprol XL 12.5 mg daily. Consider outpatient stress test to rule out ischemia. Obesity-recommend diet, exercise and weight loss. Consider sleep study to assess obstructive sleep apnea given arrhythmias. Thank you for allowing us to participate in the care of your patient. Please feel free to contact us for any questions or if we can be of further assistance. Kimberlee Barreto MD, FACDebora, GERALD [employer] Division of Cardiovascular Medicine [facility] - Health History and Physical Notes Date/Time Note Provider Source 2023-12-17 21:54:23 [facility] Hospitalist Admission H&P Date of Service: 12/17/2023 CHIEF COMPLAINT: Diabetic ketoacidosis HISTORY OF PRESENT ILLNESS Dawit Bhandari is a 48 year old male who presents with diabetic ketoacidosis. Patient states he had blurred vision along with paresthesias and polyuria. He was not feeling well and came into the emergency room. In the ER, labs revealed diabetic ketoacidosis. Patient's blood sugars were greater than 800 and patient was acidotic. Patient was admitted to the ICU and started on insulin drip. Patient has not really been to see a physician in quite a while. She does not have any significant medical history. He does not take any medicines at home. Patient also tested positive for COVID. He has not been able to work since his symptoms started and he is clinically doing well and plan is to admit the patient to the hospital for inpatient hospitalization. PAST MEDICAL HISTORY History reviewed. No pertinent past medical history. PAST SURGICAL HISTORY History reviewed. No pertinent surgical history. ALLERGIES No Known Allergies MEDICATIONS Current home medication list reviewed: Patient's Medications No medications on file FAMILY HISTORY No family history on file. SOCIAL HISTORY Social History Socioeconomic History Marital status: REVIEW OF SYSTEMS 10 systems negative except per HPI PHYSICAL EXAMINATION BP (!) 141/99 | Pulse 90 | Temp 36.4 ?C (97.5 ?F) (Oral) | Resp 16 | Ht 1.854 m (6' 1") | Wt 113.9 kg (251 lb) | SpO2 97% | BMI 33.12 kg/m? General: No acute distress HEENT: Normal oral mucosa, anicteric sclerae, NCAT Cardiovascular: RRR Lungs: Symmetric expansion, clear bilaterally Abdomen: Soft, NTND Musculoskeletal: No synovitis, normal muscle mass Genitourinary: Deferred Skin: No rash, no skin lesions Extremities: No clubbing, no cyanosis, no lower extremity edema Neuro: AAOx3, no focal deficits Psych: Normal affect LABS - reviewed pertinent labs as below: CBC BMP PT/INR WBC (10*3/?L) Date Value 12/17/2023 8.10 NA (mmol/L) Date Value 12/17/2023 129 (L) No results found for: "PT" RBC (10*6/?L) Date Value 12/17/2023 5.91 (H) K (mmol/L) Date Value 12/17/2023 5.3 (H) No results found for: "PTINR" PLT (10*3/?L) Date Value 12/17/2023 221 CALCIUM (mg/dL) Date Value 12/17/2023 9.7 HGB (g/dL) Date Value 12/17/2023 17.0 (H) CL (mmol/L) Date Value 12/17/2023 94 (L) aPTT HCT (%) Date Value 12/17/2023 50.5 (H) BUN (mg/dL) Date Value 12/17/2023 18 No results found for: "APTTPAT" CREATININE (mg/dL) Date Value 12/17/2023 1.17 IMAGING - reviewed, pertinent results as below: No results found for this visit on 12/17/23. ASSESSMENT: 1. Diabetic ketoacidosis 2. COVID 3. Nonsustained ventricular tachyarrhythmia PLAN: 1. Diabetic ketoacidosis; continue with IV fluids and an insulin drip. Patient will be given diabetic education. Monitor labs every 3 hours and continue with insulin drip. Once anion gap closes we will go ahead and start long-acting insulin. 2. COVID; patient asymptomatic; monitor labs closely 3. Nonsustained ventricular tachycardia; echocardiogram and cardiology consultation. Monitor potassium and magnesium levels. DVT prophylaxis: enoxaparin Stress ulcer prophylaxis: pantoprazole Code status: FULL Advanced Care Planning (Z71.89) Above assessment and plan discussed at length with patient, patient expressed full understanding. Questions and concerned addressed. Surrogate decision maker: NO Level of care expected after discharge: HOME Time spent: 3 minutes discussing the advanced care plan Smoking Cessation: (Z71.6) Tobacco user?: NO Patient will require inpatient stay of 2 midnights or more given high risk of morbidity and mortality. [place] RN EMERGENCY ROOM was verified during stay Avery Aguilar MD [facility]
[2024-05-23 07:44] LABS: Absolute Lymphocytes (CBC) 1.9 K/uL (0.7-4.9); Absolute Monocytes 0.7 K/uL (0.1-1.3); Absolute Neutrophil 5.5 K/uL (1.8-8.0); Basophils % 0.6 % (0-1.3); Eosinophils % 0.4 % (0-4.4); Hematocrit 51.5 % (39.6-49.0); Hemoglobin 16.4 g/dL (13.6-17.9); Lymphocytes % 23.5 % (15.3-44.8); MCH 28.1 pg (27.0-35.0); MCHC 31.8 g/dL (32.0-36.0); MCV 88.4 fL (80-100); MPV 9.2 fL (7.6-11.3); Neutrophils % 66.5 % (41.7-73.7); Nucleated Red Blood Cells % 0.2 % (0-0); Platelets 242 thou/uL (152-406); RBC Red Blood Cell Count 5.82 M/uL (4.33-5.43); Red Cell Distribution Width 14.2 % (12.1-15.2)
[2024-05-23 07:52] LABS: PT Prothrombin Time 10.5 SECONDS (9.4-12.5)
[2024-05-23 08:07] LABS: Albumin/Globulin Ratio 0.8 (1.1-1.8); Bilirubin Direct 0.2 mg/dL (0-0.2); Bilirubin Indirect, Calculated 0.2 mg/dL (0.2-0.8); Bilirubin Total 0.4 mg/dL (0.2-1.0); Globulin 4.9 g/dL (2.3-3.5); Magnesium 2.2 mg/dL (1.6-2.4); Protein, Total 8.9 g/dL (6.4-8.2); Troponin High Sensitivity 21.7 pg/mL (<58.9)
[2024-05-23 08:08] LABS: SARS-CoV-2 Antigen CONTROL BLUE LINE VIS/BG OK; SARS-CoV-2 Antigen Rapid Res Negative (Negative)
--- NOTE | 2024-05-23 08:45 | EDPHYS ---
Physician Documentation [facility] Name: Dawit Calderón Age: 49 yrs Sex: Male : 1975 Arrival Date: 05/23/2024 Time: 06:59 Bed 13 Private MD: FRANDY Physician Ben Grace HPI: 05/23 07:31 This 49 yrs old Black Male presents to ER via Ambulatory with complaints of High Blood ricardo Sugar, Weakness, Dizziness. 07:31 The patient or guardian reports hyperglycemia. Onset: The symptoms/episode ricardo began/occurred 2 day(s) ago. Associated signs and symptoms: Pertinent positives: nausea, polydipsia, polyuria. Current symptoms: In the emergency department the patient's symptoms are unchanged from the initial presentation. The patient has experienced similar episodes in the past, several times. Historical: - Allergies: 07:16 No Known Allergies; iw - Home Meds: 07:16 metformin 500 mg Oral Tablet, Extended Release 24 hr 2 times per day [Active]; losartan iw 50 mg oral tablet daily [Active]; metoprolol succinate 25 mg oral Capsule, Sprinkle Ext Rel 24hr Dose Pack daily [Active]; atorvastatin 20 mg oral tablet daily [Active]; Vitamin D Oral 50,000 unit weekly [Active]; - PMHx: 07:16 Diabetes mellitus; Hypertensive disorder; Hypercholesterolemia; iw - Immunization history:: Adult Immunizations not up to date. - Infectious Disease History:: Denies. - Social history:: Smoking status: Patient denies any tobacco usage or history of. ROS: 07:32 Constitutional: Negative for fever, chills, and weight loss, Eyes: Negative for injury, ricardo pain, redness, and discharge, ENT: Negative for injury, pain, and discharge, Neck: Negative for injury, pain, and swelling, Cardiovascular: Negative for chest pain, palpitations, and edema, Respiratory: Negative for shortness of breath, cough, wheezing, and pleuritic chest pain, Abdomen/GI: Negative for abdominal pain, nausea, vomiting, diarrhea, and constipation, Back: Negative for injury and pain, : Negative for injury, bleeding, discharge, and swelling, MS/Extremity: Negative for injury and deformity, Skin: Negative for injury, rash, and discoloration, Psych: Negative for depression, anxiety, suicide ideation, homicidal ideation, and hallucinations, Allergy/Immunology: Negative for hives, rash, and allergies, Hematologic/Lymphatic: Negative for swollen nodes, abnormal bleeding, and unusual bruising, 07:32 Neuro: Positive for weakness, Exam: 07:32 Constitutional: This is a well developed, well nourished patient who is awake, alert, ricardo and in no acute distress. Head/Face: Normocephalic, atraumatic. Eyes: Pupils equal round and reactive to light, extra-ocular motions intact. Lids and lashes normal. Conjunctiva and sclera are non-icteric and not injected. Cornea within normal limits. Periorbital areas with no swelling, redness, or edema. ENT: Nares patent. No nasal discharge, no septal abnormalities noted. Tympanic membranes are normal and external auditory canals are clear. Oropharynx with no redness, swelling, or masses, exudates, or evidence of obstruction, uvula midline. Mucous membranes moist. Neck: Trachea midline, no thyromegaly or masses palpated, and no cervical lymphadenopathy. Supple, full range of motion without nuchal rigidity, or vertebral point tenderness. No Meningismus. Chest/axilla: Normal chest wall appearance and motion. Nontender with no deformity. No lesions are appreciated. Cardiovascular: Regular rate and rhythm with a normal S1 and S2. No gallops, murmurs, or rubs. Normal PMI, no JVD. No pulse deficits. Respiratory: Lungs have equal breath sounds bilaterally, clear to auscultation and percussion. No rales, rhonchi or wheezes noted. No increased work of breathing, no retractions or nasal flaring. Abdomen/GI: Soft, non-tender, with normal bowel sounds. No distension or tympany. No guarding or rebound. No evidence of tenderness throughout. Back: No spinal tenderness. No costovertebral tenderness. Full range of motion. Male : Normal genitalia with no discharge or lesions. Skin: Warm, dry with normal turgor. Normal color with no rashes, no lesions, and no evidence of cellulitis. MS/ Extremity: Pulses equal, no cyanosis. Neurovascular intact. Full, normal range of motion., bilateral aka Psych: Awake, alert, with orientation to person, place and time. Behavior, mood, and affect are within normal limits. 07:32 Neuro: Orientation: is normal, appropriate for stated age, no acute changes, Mentation: is normal, appropriate for stated age, no acute changes, Memory: is normal, appropriate for stated age, no acute changes, Cranial nerves: grossly normal, is grossly normal based on the patient's age, no acute changes, Cerebellar function: is grossly normal, is grossly normal based on the patient's age, no acute changes, Motor: is normal, Sensation: is normal, Gait: is steady, at a normal pace, without difficulty, seizure activity, is not displayed by the patient, 07:50 ECG was reviewed by the Attending Physician. [facility] Vital Signs: 07:15 BP 140 / 94; Pulse 95; Resp 19; Temp 97; Pulse Ox 100% on R/A; Weight 99.34 kg; Height iw 6 ft. 1 in. ; Pain 0/10; 10:31 BP 166 / 86; Pulse 84; Resp 17; Pulse Ox 100% on R/A; ap3 20:00 BP 150 / 99; Pulse 89; Resp 18; Pulse Ox 99% ; cp4 07:15 Body Mass Index 28.89 (99.34 kg, 185.42 cm) iw 07:15 Pain Scale: Adult iw MDM: 07:06 Medical Screening Exam initiated ricardo 07:35 Differential diagnosis: DKA, hyperglycemia. Data reviewed: vital signs, nurses notes, [facility] lab test result(s), EKG, radiologic studies, plain films. Consideration of Admission/Observation Escalation of care including admission/observation considered. I considered the following discharge prescriptions or medication management in the emergency department Medications were administered in the Emergency Department. See MAR. Independent interpretation of the following test(s) in the Emergency Department EKG: See my EKG interpretation above. Test considered but Not performed: Ultrasound no abd usg. Care significantly affected by the following chronic conditions: Diabetes, Hypertension, high chlesterol. 05/23 07:19 Order name: Basic Metabolic Panel; Complete Time: 08:41 [facility] 05/23 07:19 Order name: CBC with Diff; Complete Time: :56 [facility] 05/23 07:19 Order name: LFT's; Complete Time: 08:41 [facility] 05/23 07:19 Order name: Magnesium; Complete Time: 08:41 [facility] 05/23 07:19 Order name: NT PRO-BNP; Complete Time: 08:41 [facility] 05/23 07:19 Order name: PT-INR; Complete Time: 07:56 [facility] 05/23 07:19 Order name: Troponin HS; Complete Time: 08:41 ricardo 05/23 07:19 Order name: Lipase; Complete Time: 08:41 [facility] 05/23 07:19 Order name: Urinalysis w/ reflexes [facility] 05/23 07:19 Order name: Flu; Complete Time: 08:11 ricardo 05/23 07:19 Order name: SARS RAPID; Complete Time: 08:11 ricardo 05/23 07:25 Order name: Glucose, Ancillary Testing; Complete Time: 07:36 EDMS 05/23 08:39 Order name: ABG [facility] 05/23 08:42 Order name: BETA HYDROXYBUTYRATE [facility] 05/23 09:35 Order name: Glucose, Ancillary Testing EDMS 05/23 09:40 Order name: CBC with Automated Diff EDMS 05/23 09:40 Order name: CBC with Automated Diff EDMS 05/23 09:40 Order name: Comprehensive Metabolic Panel EDMS 05/23 09:40 Order name: Comprehensive Metabolic Panel EDMS 05/23 09:40 Order name: Lipid Profile EDMS 05/23 09:40 Order name: Lipid Profile EDMS 05/23 09:40 Order name: Basic Metabolic Panel EDMS 05/23 09:40 Order name: Basic Metabolic Panel EDMS 05/23 09:40 Order name: Basic Metabolic Panel EDMS 05/23 09:40 Order name: Basic Metabolic Panel EDMS 05/23 09:40 Order name: Basic Metabolic Panel EDMS 05/23 09:40 Order name: Basic Metabolic Panel EDMS 05/23 09:40 Order name: Basic Metabolic Panel EDMS 05/23 09:40 Order name: Hemoglobin A1c EDMS 05/23 10:38 Order name: Glucose, Ancillary Testing EDMS 05/23 11:35 Order name: Glucose, Ancillary Testing EDMS 05/23 12:33 Order name: Glucose, Ancillary Testing EDMS 05/23 13:43 Order name: Glucose, Ancillary Testing EDMS 05/23 14:58 Order name: Glucose, Ancillary Testing EDMS 05/23 16:19 Order name: Glucose, Ancillary Testing EDMS 05/23 16:27 Order name: Basic Metabolic Panel EDMS 05/23 17:31 Order name: Glucose, Ancillary Testing EDMS 05/23 18:29 Order name: Glucose, Ancillary Testing EDMS 05/23 20:06 Order name: Glucose, Ancillary Testing EDMS 05/23 20:30 Order name: Basic Metabolic Panel EDOK 05/23 21:28 Order name: Glucose, Ancillary Testing EDMS 05/23 22:04 Order name: Glucose, Ancillary Testing EDMS 05/23 22:31 Order name: Glucose, Ancillary Testing EDMS 05/23 23:25 Order name: Glucose, Ancillary Testing EDMS 05/24 00:37 Order name: Glucose, Ancillary Testing EDMS 05/24 01:10 Order name: Basic Metabolic Panel EDOK 05/24 01:32 Order name: Glucose, Ancillary Testing EDMS 05/24 02:38 Order name: Glucose, Ancillary Testing EDMS 05/24 03:32 Order name: Glucose, Ancillary Testing EDMS 05/23 07:19 Order name: XRAY Chest (1 view) [facility] 05/23 10:28 Order name: [facility] 05/23 07:19 Order name: EKG; Complete Time: 07:19 [facility] 05/23 07:19 Order name: Cardiac monitoring; Complete Time: 09:06 [facility] 05/23 07:19 Order name: EKG - Nurse/Tech; Complete Time: 07:50 [facility] 05/23 07:19 Order name: IV Saline Lock; Complete Time: 07:37 [facility] 05/23 07:19 Order name: Labs collected and sent; Complete Time: 07:37 [facility] 05/23 07:19 Order name: O2 Per Protocol; Complete Time: 09:06 [facility] 05/23 07:19 Order name: O2 Sat Monitoring; Complete Time: 09:06 [facility] EC:50 Rate is 83 beats/min. Rhythm is regular. QRS [place] is Normal. NM interval is normal. QRS ricardo interval is normal. QT interval is prolonged at 481 msec. No Q waves. T waves are Normal. No ST changes noted. Clinical impression: NSR w/ Non-specific ST/T Changes and No evidence of ischemia. Interpreted by me. Reviewed by me. Administered Medications: 09:05 Drug: Famotidine IVP 20 mg IVP once; dilute with 10 mL 0.9% NaCl; give over 2 minutes ap3 Route: IVP; Site: right antecubital; 10:17 Follow up: Response: No adverse reaction ap3 09:05 Drug: NS 0.9% IV 1000 ml IV at 1000 ml once; to be given as a bolus over 60 minutes ap3 Route: IV; Rate: 1000 ml; Site: right antecubital; 09:06 Drug: NS 0.9% IV 500 ml 500 ml IV at 1 bolus once; to be given as a bolus over 30 ap3 minutes Volume: 500 ml; Route: IV; Rate: 1 bolus; Site: right antecubital; 09:06 Drug: Aspirin PO Chewable Tablet 81 mg PO once Route: PO; ap3 10:17 Follow up: Response: No adverse reaction ap3 09:06 Drug: NS 0.9% IV 1000 ml IV at 1000 ml once; to be given as a bolus over 60 minutes ap3 Route: IV; Rate: 1000 ml; Site: right antecubital; 10:17 Follow up: IV Status: Completed infusion; IV Intake: 1000ml ap3 09:27 Drug: Insulin Drip - (Insulin Regular Human IVP 100 units, NS 0.9% IV 100 ml) IV at 4 ap3 units/hr continuous; Standard concentration 1unit/ml; Dose for DKA is 0.1 units/kg/hr {Co-Signature: iw (Jillian Rodas RN).} Route: IV; Rate: 4 units/hr; Site: right antecubital; Point of Care Testing: Blood Glucose: 07:18 Blood Glucose: 315 mg/dL; iw Ranges: Critical Glucose Levels:Adult <50 mg/dl or >400 mg/dl <40 mg/dl or >180 mg/dl Disposition Summary: 05/23/24 08:44 Hospitalization Ordered Notes: Hospitalization Status: Inpatient Admission ricardo Provider: Olga Aguilar cha Condition: Fair ricardo Problem: new ricardo Symptoms: have improved ricardo Bed/Room Type: Standard [facility] Location: Intensive Care Unit(05/24/24 02:59) Room Assignment: 4-(05/24/24 02:59) Diagnosis - Weakness ricardo - Dizziness and giddiness ricardo - Other specified diabetes mellitus with ketoacidosis without coma ricardo Forms: - Medication Reconciliation Form ricardo - SBAR form ricardo - Leadership Thank You Letter ricardo Signatures: Dispatcher [employer] Bel Smith RN RN kl Anderson, Corey, MD MD cha Williams, Irene, RN RN iw Prokisch, Amanda, RN RN ap3 Annalisa Hunt RN RN kb3 Jillian Rodas RN iw Corrections: (The following items were deleted from the chart) 10:18 08:44 Intensive Care Unit ricardo kb3 10:18 08:44 ricardo kb3 05/24 02:59 02 10:18 [facility] ER HOLD kb3 kl 05/24 02:59 05/23 10:18 ERHOLD- kb3 kl
--- NOTE | 2024-05-23 08:45 | ER ---
Nurse's Notes [facility] Name: Dawit Calderón Age: 49 yrs Sex: Male : 1975 Arrival Date: 05/23/2024 Time: 06:59 Bed 13 Private MD: Diagnosis: Weakness;Dizziness and giddiness;Other specified diabetes mellitus with ketoacidosis without coma Presentation: 05/23 07:15 Chief complaint: Patient states: not feeling well, SOB, not eating since yesterday , iw denies fever, denies n/v/d , denies pain. Coronavirus screen: At this time, the client does not indicate any symptoms associated with coronavirus-19. Ebola Screen: No symptoms or risks identified at this time. Initial Sepsis Screen: Does the patient meet any 2 criteria? No. Patient's initial sepsis screen is negative. Does the patient have a suspected source of infection? No. Patient's initial sepsis screen is negative. Risk Assessment: Do you want to hurt yourself or someone else? Patient reports no desire to harm self or others. Onset of symptoms was May 22, 2024. 07:15 Method Of Arrival: Ambulatory iw 07:15 Acuity: HIRAM 3 iw 08:46 Acuity: HIRAM 2 iw Historical: - Allergies: 07:16 No Known Allergies; iw - Home Meds: 07:16 metformin 500 mg Oral Tablet, Extended Release 24 hr 2 times per day [Active]; losartan iw 50 mg oral tablet daily [Active]; metoprolol succinate 25 mg oral Capsule, Sprinkle Ext Rel 24hr Dose Pack daily [Active]; atorvastatin 20 mg oral tablet daily [Active]; Vitamin D Oral 50,000 unit weekly [Active]; - PMHx: 07:16 Diabetes mellitus; Hypertensive disorder; Hypercholesterolemia; iw - Immunization history:: Adult Immunizations not up to date. - Infectious Disease History:: Denies. - Social history:: Smoking status: Patient denies any tobacco usage or history of. Screenin:38 [facility] ED Fall Risk Assessment (Adult) History of falling in the last 3 months, iw including since admission No falls in past 3 months (0 pts) Confusion or Disorientation No (0 pts) Intoxicated or Sedated No (0 pts) Impaired Gait No (0 pts) Mobility Assist Device Used No (0 pt) Altered Elimination No (0 pt) Score/Fall Risk Level 0 - 2 = Low Risk Oriented to surroundings, Maintained a safe environment. Abuse screen: Denies threats or abuse. Nutritional screening: No deficits noted. Tuberculosis screening: No symptoms or risk factors identified. Assessment: 07:19 General: Appears uncomfortable, Behavior is calm, cooperative. Pain: Denies pain. iw Neuro: Level of Consciousness is awake, alert, obeys commands, Oriented to person, place, time, situation, Moves all extremities. Full function. Cardiovascular: Denies chest pain, Patient's skin is warm and dry. Respiratory: Reports shortness of breath at rest on exertion Respiratory effort is even, unlabored, Respiratory pattern is regular, symmetrical. GI: Abdomen is non-distended, Patient currently denies nausea, vomiting. Derm: Skin is intact. Vital Signs: 07:15 BP 140 / 94; Pulse 95; Resp 19; Temp 97; Pulse Ox 100% on R/A; Weight 99.34 kg; Height iw 6 ft. 1 in. ; Pain 0/10; 10:31 BP 166 / 86; Pulse 84; Resp 17; Pulse Ox 100% on R/A; ap3 20:00 BP 150 / 99; Pulse 89; Resp 18; Pulse Ox 99% ; cp4 07:15 Body Mass Index 28.89 (99.34 kg, 185.42 cm) iw 07:15 Pain Scale: Adult iw ED Course: 07:05 Patient arrived in ED. gm2 07:06 Ben Grace MD is Attending Physician. ricardo 07:16 Triage completed. iw 07:18 Arm band placed on. iw 07:37 Initial lab(s) drawn, by me, sent to lab. Inserted saline lock: 20 gauge in left iw antecubital area, using aseptic technique. Blood collected. Flushed with 10 mL NS. 08:06 Patient has correct armband on for positive identification. iw 08:44 Olga Aguilar MD is Hospitalizing Provider. ricardo 09:05 Yodit Joshua, MORA is Primary Nurse. ap3 09:28 Client placed on continuous cardiac and pulse oximetry monitoring. NIBP monitoring ap3 applied. cardiac monitor technician on. Pulse ox on. NIBP on. 09:28 Inserted saline lock: 22 gauge in right antecubital area, using aseptic technique. ap3 10:41 Provided Education on: need for admission . ap3 10:41 No provider procedures requiring assistance completed. Patient admitted, IV remains in ap3 place. 19:11 Report given to mora griffin. ap3 Administered Medications: 09:05 Drug: Famotidine IVP 20 mg IVP once; dilute with 10 mL 0.9% NaCl; give over 2 minutes ap3 Route: IVP; Site: right antecubital; 10:17 Follow up: Response: No adverse reaction ap3 09:05 Drug: NS 0.9% IV 1000 ml IV at 1000 ml once; to be given as a bolus over 60 minutes ap3 Route: IV; Rate: 1000 ml; Site: right antecubital; 09:06 Drug: NS 0.9% IV 500 ml 500 ml IV at 1 bolus once; to be given as a bolus over 30 ap3 minutes Volume: 500 ml; Route: IV; Rate: 1 bolus; Site: right antecubital; 09:06 Drug: Aspirin PO Chewable Tablet 81 mg PO once Route: PO; ap3 10:17 Follow up: Response: No adverse reaction ap3 09:06 Drug: NS 0.9% IV 1000 ml IV at 1000 ml once; to be given as a bolus over 60 minutes ap3 Route: IV; Rate: 1000 ml; Site: right antecubital; 10:17 Follow up: IV Status: Completed infusion; IV Intake: 1000ml ap3 09:27 Drug: Insulin Drip - (Insulin Regular Human IVP 100 units, NS 0.9% IV 100 ml) IV at 4 ap3 units/hr continuous; Standard concentration 1unit/ml; Dose for DKA is 0.1 units/kg/hr {Co-Signature: iw (Jillian Rodas RN).} Route: IV; Rate: 4 units/hr; Site: right antecubital; Medication: 07:38 VIS not applicable for this client. iw Point of Care Testing: Blood Glucose: 07:18 Blood Glucose: 315 mg/dL; iw Ranges: Intake: 10:17 IV: 1000ml; Total: 1000ml. ap3 Outcome: 08:44 Decision to Hospitalize by Provider. ricardo 10:41 Admitted to ER Hold. [facility] for further documentation. ap3 10:41 Condition: stable 10:41 Discharge instructions given to patient, Instructed on the need for admit, Demonstrated understanding of instructions, 05/24 04:19 Admitted to ICU accompanied by nurse, via stretcher, on monitor, with chart, Report cp4 called to Petra Condition: stable Instructed on the need for admit, 04:20 Patient left the ED. cp4 Signatures: Ben Grace MD MD cha Williams, Irene, RN RN Yodit Reno RN RN [email or web address] Lroena Rodriguez cp4 Marian Victor [facility] Jillian Rodas RN
[2024-05-23] MEDS ORDERED: FAMOTIDINE 20 MG/2 ML VIAL IV ONE (08:50)
[2024-05-23] MEDS ORDERED: ASPIRIN 81 MG CHEWABLE TABLET ONE (08:50)
[2024-05-23] MEDS ORDERED: NA CHLORIDE 0.9% 500 ML ONE (08:51)
[2024-05-23] MEDS ORDERED: NA CHLORIDE 0.9% 2,000 ML ONE (08:51)
[2024-05-23] MEDS ORDERED: INSULIN REGULAR, HUMAN 100 UNIT in NA CHLORIDE 0.9% 100 ML IV SCH (09:00)
[2024-05-23 09:09] LABS: Arterial Blood Carboxyhemoglob 0.6 % (0-1.5); Blood Gas Oxyhemoglobin 94.1 % (94-97); Blood Gas THB 17.3 g/dl (12-18)
[2024-05-23 09:32] LABS: Specific Gravity 1.025 (1.005-1.030); Sqamous Epithelial None Seen /HPF (None Seen); Urine Bacteria <20 /HPF (<20); Urine Bilirubin NEGATIVE (Negative); Urine Blood 1+ (Negative); Urine Clarity Clear (Clear); Urine Color Colorless (Yellow); Urine Culture Reflex Order NOT NEEDED; Urine Glucose 4+ (Over) (Negative); Urine Ketones 4+ (Over) (Negative); Urine Microscopic Reflex YN ORDER UMIC; Urine Mucus Slight /HPF (None Seen); Urine Nitrite NEGATIVE (Negative); Urine Protein 1+ (Negative); Urine RBC <5 /HPF (None Seen); Urine Urobilinogen Normal (Normal); Urine WBC <5 /HPF (<5); Urine pH 5.5 (5.0-7.0)
[2024-05-23] MEDS ORDERED: ONDANSETRON 4 MG/2 ML VIAL IV PRN (09:35)
[2024-05-23] MEDS ORDERED: MORPHINE 2 MG/ML SYR IV PRN (09:35)
[2024-05-23] MEDS ORDERED: ACETAMINOPHEN 500 MG TAB PO PRN (09:35)
[2024-05-23] MEDS ORDERED: GLUCAGON 1 MG/VIAL IM PRN (09:37)
[2024-05-23] MEDS ORDERED: D50W 25 GM/50 ML SYRINGE IV PRN (09:37)
[2024-05-23] MEDS: D5 0.45 NS 1,000 ML IV SCH (10:00)
[2024-05-23] MEDS ORDERED: D10W 125 ML IV PRN (10:02)
--- NOTE | 2024-05-23 10:28 | RAD REPORT ---
Procedure: Chest Single View HISTORY: Shortness of breath COMPARISON: 2021 FINDINGS: The lungs appear clear of acute infiltrate. No significant pleural effusion noted. The heart is normal size. IMPRESSION: No acute abnormality is displayed.
[2024-05-23 10:46] VITALS: BMI 28.8
[2024-05-23] MEDS ORDERED: D5 0.45 NS 1,000 ML IV ONE ×2 (11:19→16:17)
--- NOTE | 2024-05-23 11:24 | EKG ---
Test Date: 2024-05-23 Test Time: 07:47:06 Mid Level Developer: CARMEN MEASUREMENT RESULTS: Intervals: Rate: 83 TN: 112 QRSD: 106 QT: 410 QTc: 481 [place]: P: 35 TN: 112 QRS: 2 T: 12 INTERPRETIVE STATEMENTS: Normal sinus rhythm Nonspecific ST and T wave abnormality Prolonged QT Abnormal ECG Compared to ECG 09/11/2021 16:45:03 ST (T wave) deviation now present Ventricular premature complex(es) no longer present T-wave abnormality no longer present Possible ischemia no longer present Electronically Signed On 05-23-24 11:24:00 [facility] by Zoltan Musa
[2024-05-23] MEDS: INSULIN REGULAR, HUMAN 100 UNIT in NA CHLORIDE 0.9% 100 ML IV SCH (11:28)
[2024-05-23 11:38] LABS: Anion Gap 22.3 mEq/L (5.0-15.0); Potassium 4.3 mEq/L (3.5-5.1)
[2024-05-23 16:27] LABS: Anion Gap 18.4 mEq/L (5.0-15.0); Potassium 4.4 mEq/L (3.5-5.1)
[2024-05-23] MEDS: METOPROLOL TARTRATE 5 MG/5 ML INJ IV STA (19:03)
[2024-05-23] MEDS ORDERED: METOPROLOL TARTRATE 5 MG/5 ML INJ IV ONE (20:14)
[2024-05-23 20:27] LABS: Anion Gap 15.8 mEq/L (5.0-15.0); Potassium 3.8 mEq/L (3.5-5.1)
[2024-05-23] MEDS ORDERED: D5W 1,000 ML IV ONE (22:27)
[2024-05-23] MEDS: D5W 1,000 ML IV SCH (22:31)
[2024-05-24 01:10] LABS: Anion Gap 13.5 mEq/L (5.0-15.0); Potassium 3.5 mEq/L (3.5-5.1)
[2024-05-24 04:30] VITALS: O2SAT 99
[2024-05-24] MEDS: METOPROLOL TAR 25 MG TAB PO SCH (05:52)
[2024-05-24] MEDS: INSULIN GLARGINE 100 UNIT/ML SQ ONE (05:52)
[2024-05-24 06:12] LABS: Absolute Basophils 0.1 K/uL (0-0.5); Absolute Eosinophils 0.1 K/uL (0-0.5); Absolute Lymphocytes (CBC) 0.5 K/uL (0.7-4.9); Absolute Monocytes 0.7 K/uL (0.1-1.3); Absolute Neutrophil 3.1 K/uL (1.8-8.0); Basophils % 1.4 % (0-1.3); Eosinophils % 2.2 % (0-4.4); Hematocrit 45.4 % (39.6-49.0); Hemoglobin 14.9 g/dL (13.6-17.9); Lymphocytes % 12.1 % (15.3-44.8); MCH 28.1 pg (27.0-35.0); MCHC 32.9 g/dL (32.0-36.0); MCV 85.4 fL (80-100); Monocytes % 15.3 % (3.3-12.3); Nucleated Red Blood Cells % 0.1 % (0-0); Platelets 177 thou/uL (152-406); RBC Red Blood Cell Count 5.32 M/uL (4.33-5.43); Red Cell Distribution Width 14.3 % (12.1-15.2)
[2024-05-24 06:37] LABS: ALT/SGPT 15 U/L (16-61); Albumin 2.9 g/dL (3.4-5.0); Albumin/Globulin Ratio 0.8 (1.1-1.8); Alkaline Phosphatase 70 U/L (45-117); Anion Gap 14.5 mEq/L (5.0-15.0); BUN Blood Urea Nitrogen 9 mg/dL (7-18); Bicarbonate 15 mEq/L (21-32); Bilirubin Total 0.5 mg/dL (0.2-1.0); Globulin 3.7 g/dL (2.3-3.5); Glomerular Filtration Rate 88 ml/min (=/>90); Glucose Level 241 mg/dL (74-106); HDL Cholesterol 53 mg/dL (40-60); LDL Cholesterol, Calculated 69 mg/dL (<130); LDL Cholesterol,Calc NonReport 69; Potassium 3.5 mEq/L (3.5-5.1); Protein, Total 6.6 g/dL (6.4-8.2); Sodium Level 133 mEq/L (136-145)
[2024-05-24 06:40] LABS: AST/SGOT < 10 U/L (15-37)
[2024-05-24] MEDS: LOSARTAN POTASSIUM 50 MG TABLET PO SCH (07:37)
[2024-05-24 07:41] VITALS: TEMP 97.1
[2024-05-24] MEDS ORDERED: NACHLORIDE 0.45% 1,000 ML IV SCH (09:00)
[2024-05-24] MEDS: INSULIN 70/30 100 UNITS/ML SQ ONE (09:21)
[2024-05-24] MEDS: SODIUM BICARB 325 MG TAB PO ONE (09:22)
[2024-05-24 10:25] VITALS: BP 125/73
[2024-05-24 11:47] LABS: Anion Gap 14.8 mEq/L (5.0-15.0); Potassium 3.8 mEq/L (3.5-5.1)
[2024-05-24] MEDS: INSULIN REGULAR (HUMAN) 100 UNIT/ML SQ ONE (12:01)
== END 2024-05-24 12:10 | disposition home or self-care (01) | DRG 639 ==
LOC: ER 06:59 → ERHOLD 09:35 → 3RD-ICU 05-24 04:01
PROVIDERS: ADMIT Hospitalist; ATTEND Hospitalist
PROC: 4A033R1 Measurement of Arterial Saturation, Peripheral, Percutaneous Approach (ICD-10-PCS; principal; 2024-05-23)
DX: E11.10 Type 2 diabetes mellitus with ketoacidosis without coma (principal); I10 Essential (primary) hypertension; E78.00 Pure hypercholesterolemia, unspecified; Z11.52 Encounter for screening for COVID-19; Z79.84 Long term (current) use of oral hypoglycemic drugs; Z79.899 Other long term (current) drug therapy
CPT/HCPCS: 36415; 36600; 71045; 80048; 80053; 80061; 80076; 81001; 82010; 82805; 82947; 83036; 83690; 83735; 83880; 84484; 85025; 85610; 87804; 87811; 93005; 96361; 96374; 96375; 99285; J1815; J7030; J7040; J7799